=== PATIENT | female | born 1980 | race Caucasian/White ===

== ENCOUNTER 2016-12-07 13:33 | Emergency (ER) | payer MEDICAID, OTHER ==
[~2016-12-07 13:33] MED LIST: KETO10 PO; PENI500T PO; Z.0.NO CURRENT MEDS
[2016-12-07 13:45] VITALS: BP 141/70; PULSE 70; RESP 16; TEMP 98.4; O2SAT 99
--- NOTE | 2016-12-07 13:50 | PD ---
Physical Exam Date Seen by Provider: Dec 07, 2016 Time Seen by Provider: 13:49 Narrative Pt states she had an anxiety attack, she felt like she couldn't breathe and she lost her voice. She states she couldn't talk. she reports that she experienced muscle aches at that time. Currently she reports mid chest pain and shortness of breath. VSS, awaiting bed placement. Data Data Last Documented VS Vital Signs Date Time Temp Pulse Resp B/P (MAP) Pulse Ox O2 Delivery O2 Flow Rate FiO2 12/07/16 13:45 98.4 70 16 141/70 (93) 99 MDM Supervised Visit with KASSI: Holley Chang Dec 07, 2016 13:50
[2016-12-07] MEDS ORDERED: LORazepam 0.5 MG TAB PO ONE (14:15)
--- NOTE | 2016-12-07 14:15 | PD ---
HPI Chief Complaint: Anxiety Time Seen by Provider: 14:02 Travel History International Travel<30 days: No Contact w/Intl Traveler<30days: No Traveled to known affect area: No History of Present Illness HPI The patient was seen and examined in the presence of the nurse. This patient with history of anxiety presents complaining of numerous somatic complaints. She had whole body cramping and burning in her toes and some discomfort in her chest and felt short of breath. Started to get nervous and anxious and the symptoms multiplied. Denies fever or productive cough or abdominal complaint. Symptoms severity is moderate. She looks visibly anxious. No alleviating factors. Duration 2 hours PFSH Past Medical History ?: Not Social History Alcohol Use: No Tobacco Use: No Substance Use: No Allergies-Medications (Allergen,Severity, Reaction): Coded Allergies: No Known Allergies (Unverified , 12/07/16) Reported Meds & Prescriptions Reported Meds & Active Scripts Active No Active Prescriptions or Reported Medications Review of Systems General / Constitutional: No: Fever Eyes: No: Visual changes HENT: No: Headaches Cardiovascular: Positive: Chest Pain or Discomfort Respiratory: Positive: Shortness of Breath Gastrointestinal: Positive: Nausea, No: Abdominal Pain Genitourinary: No: Dysuria Musculoskeletal: Positive: Myalgias, Pain Skin: No Rash Neurologic: No: Weakness Psychiatric: Positive: Anxiety, No: Depression Endocrine: No: Polydipsia Hematologic/Lymphatic: No: Easy Bruising Physical Exam Narrative GENERAL: Very thin well-developed patient who seems anxious . SKIN: Focused skin assessment reveals no rash and nodules. Skin is Warm and dry. HEAD: Atraumatic. Normocephalic. EYES: Pupils equal and round. No scleral icterus. No injection or drainage. ENT: No nasal bleeding or discharge. Mucous membranes pink and moist. NECK: Trachea midline. No JVD. CARDIOVASCULAR: Regular rate and rhythm. No murmur appreciated. RESPIRATORY: No accessory muscle use. Clear to auscultation. Breath sounds equal bilaterally. GASTROINTESTINAL: Abdomen soft, non-tender, nondistended. Hepatic and splenic margins not palpable. MUSCULOSKELETAL: No obvious deformities. No clubbing. No cyanosis. No edema. NEUROLOGICAL: Awake and alert. No obvious cranial nerve deficits. Motor grossly within normal limits. Normal speech. PSYCHIATRIC: Anxious mood and affect; insight and judgment seems reduced . Data Data Last Documented VS Vital Signs Date Time Temp Pulse Resp B/P (MAP) Pulse Ox O2 Delivery O2 Flow Rate FiO2 12/07/16 13:45 98.4 70 16 141/70 (93) 99 Orders Orders Chest, Single Ap (12/07/16 ) Ed Urine Pregnancytest Poc (12/07/16 14:09) Electrocardiogram (12/07/16 ) Lorazepam (Ativan) (12/07/16 14:15) MDM Medical Decision Making Medical Screen Exam Complete: Yes Emergency Medical Condition: Yes Medical Record Reviewed: Yes Differential Diagnosis ACS, pneumonia, anxiety, panic Narrative Course I have reviewed the patient's electronic medical record. I reviewed her EKG which shows sinus rhythm without ectopy or ST elevation I reviewed her chest x-ray which shows mild cardiomegaly without acute finding I gave her dose of oral Ativan for anxiety Urine is negative Extended cardiac monitoring reveals sinus rhythm without ectopy On recheck patient is stable for outpatient follow-up. I do not believe her symptoms were cardiac related I think more likely they were anxiety driven Diagnosis Primary Impression: Anxiety attack Additional Impressions: Chest pain Qualified Codes: R07.2 - Precordial pain Dyspnea Qualified Codes: R06.00 - Dyspnea, unspecified Additional Instructions: The patient was advised to follow up with their physician and return if they worsen. Med/Other Pt SpecificInfo: Other Scripts No Active Prescriptions or Reported Meds Disposition: 01 DISCHARGE HOME Condition: Stable Aramis Peter MD Dec 07, 2016 14:15
--- NOTE | 2016-12-07 15:09 | RADRPT ---
EXAM DATE/TIME: 12/07/2016 14:12 [facility] COMPARISON: No previous studies available for comparison. INDICATIONS : Patient has shortness of breath. MEDICAL HISTORY : None. SURGICAL HISTORY : thoracic surgery ENCOUNTER: Initial ACUITY: 3 days PAIN SCORE: 4/10 LOCATION: Bilateral upper chest FINDINGS: A single portable frontal view of the chest shows mild cardiomegaly. Lungs are clear. No effusions. N o pulmonary vascular engorgement. Bardales style rods with scoliotic curvature. CONCLUSION: Mild cardiomegaly without infiltrate or effusion. Paulo Pittman Jr., MD on December 07, 2016 at 15:07 Board Certified Radiologist. This report was verified electronically.
--- NOTE | 2016-12-08 13:08 | EKG ---
Date Performed: 12/07/2016 Time Performed: 14:29:12 PTAGE: 36 years EKG: Sinus rhythm INCOMPLETE RIGHT BUNDLE BRANCH BLOCK MINIMAL ST DEPRESSION BORDERLINE ECG NO PREVIOUS TRACING DOCTOR: Shayla Deleon Interpretating Date/Time 12/08/2016 13:07:10
== END 2016-12-07 16:46 | disposition home or self-care (01) ==
LOC: NEPD 13:33
DX: F41.8 Other specified anxiety disorders (principal); R07.2 Precordial pain; R06.00 Dyspnea, unspecified; M79.1 Myalgia; R94.31 Abnormal electrocardiogram [ECG] [EKG]
CPT/HCPCS: 71010; 84703; 93005; 99284